=== PATIENT | male | born 2000 | race Caucasian/White ===

== ENCOUNTER 2021-07-01 21:01 | Emergency (ER) | payer OTHER ==
[~2021-07-01 21:01] MED LIST: IBUPROFEN800 MG PO
[2021-07-01 22:25] LABS: HEMOGLOBIN 16.7 gm/dl (14.0-17.5); RED BLOOD COUNT 5.35 M/UL (4.20-5.50); WHITE BLOOD COUNT 5.8 K/UL (4.5-11.0)
[2021-07-01 22:48] LABS: BUN/CREATININE RATIO 13 (0-10)
== END 2021-07-02 11:45 | disposition home or self-care (01) ==
LOC: ER1 21:01
PROVIDERS: Physician Assistant Medical
DX: U07.1 COVID-19 (principal); F41.9 Anxiety disorder, unspecified; F32.A Depression, unspecified; F17.290 Nicotine dependence, other tobacco product, uncomplicated; Z88.0 Allergy status to penicillin
CPT/HCPCS: 80053; 80307; 81001; 85025; 99284; G0480; U0002

== ENCOUNTER 2021-10-12 13:34 | Emergency (ER) | payer OTHER ==
[2021-10-12] MEDS ORDERED: AUGMENTIN 875-1 EACH PO (15:25)
== END 2021-10-12 16:23 | disposition home or self-care (01) ==
LOC: ER1 13:34
DX: S02.2XXA Fracture of nasal bones, initial encounter for closed fracture (principal); Z88.0 Allergy status to penicillin; W00.0XXA Fall on same level due to ice and snow, initial encounter
CPT/HCPCS: 70450; 70486; 73130; 99284

== ENCOUNTER 2022-02-09 15:34 | Emergency (ER) | payer OTHER ==
[~2022-02-09 15:34] MED LIST changes: +AUGMENTIN 875-1 EACH PO
[2022-02-09] MEDS ORDERED: AMOX TR-K CLV1 EAC4 PO (16:51)
[2022-02-09] MEDS ORDERED: CLEOCIN HCL300 MG PO (17:48)
[2022-02-09] MEDS ORDERED: METRONIDAZOLE500 MG PO (17:48)
== END 2022-02-09 17:51 | disposition home or self-care (01) ==
LOC: ER1 15:34
DX: S01.25XA Open bite of nose, initial encounter (principal); W54.0XXA Bitten by dog, initial encounter; Z23 Encounter for immunization; Y92.009 Unspecified place in unspecified non-institutional (private) residence as the place of occurrence of the external cause
CPT/HCPCS: 90471; 90715; 99283

== ENCOUNTER 2022-03-31 20:05 | Emergency (ER) | payer OTHER ==
[~2022-03-31 20:05] MED LIST changes: +AMOX TR-K CLV1 EAC4 PO; +CLEOCIN HCL300 MG PO; +METRONIDAZOLE500 MG PO
== END 2022-03-31 23:49 | disposition home or self-care (01) ==
LOC: ER1 20:05
DX: R07.81 Pleurodynia (principal); F17.210 Nicotine dependence, cigarettes, uncomplicated; W17.89XA Other fall from one level to another, initial encounter
CPT/HCPCS: 71111; 99283